=== PATIENT | female | born 1950 | race Caucasian/White ===

== ENCOUNTER 2016-06-26 12:28 | Inpatient (IN) | payer OTHER, MEDICARE ==
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
[~2016-06-26] VITALS: Ht 149.9 cm; Wt 56.3 kg
[2016-06-26] MEDS ORDERED: HYDR-3516 PO (14:50)
[2016-06-26] MEDS ORDERED: THERTAB27 PO (14:50)
[2016-06-26] MEDS ORDERED: CALC600T25 PO (14:50)
[2016-06-26] MEDS ORDERED: IBUP200T2 PO (14:50)
[2016-06-28] MEDS: LACTATED RINGER'S 1000 ML IV SCH (06:20)
[2016-06-28 06:24] VITALS: BP 130/65; PULSE 76; RESP 16; TEMP 98.1; O2SAT 100
[2016-06-28] MEDS ORDERED: INSULIN HUMAN REGULAR 1,000 UNITS/10 ML VIAL SQ PRN (06:30)
[2016-06-28] MEDS ORDERED: METOPROLOL TARTRATE 25 MG TAB PO PRN (06:30)
[2016-06-28] MEDS ORDERED: ceFAZolin 2 GM PREMIX 50 ML ONE (06:30)
[2016-06-28] MEDS: POVIDONE IODINE 7.5% SCRUB 118 ML BOTTLE TOP SCH (06:45)
[2016-06-28] MEDS ORDERED: TRANEXAMIC ACID 1 GM POST-OP IV SCH ×2 (06:45)
[2016-06-28] MEDS: CHLORHEXIDINE GLUCONATE 4% SOLN 120 ML BTL TOP SCH (06:45)
[2016-06-28] MEDS ORDERED: TRANEXAMIC ACID 1 GM PRIOR TO PROCEDURE IV SCH ×2 (06:45)
[2016-06-28] MEDS ORDERED: ceFAZolin 2 GM PREMIX 50 ML IV SCH (06:45)
[2016-06-28] MEDS ORDERED: MIDAZOLAM HCL 5 MG/5 ML VIAL ONE (06:58)
[2016-06-28] MEDS ORDERED: SODIUM CHLORID 0.9% 500 ML IV SCH (07:30)
[2016-06-28] MEDS ORDERED: ceFAZolin INJ 1,000 MG VIAL TOP ONE (08:22)
[2016-06-28] MEDS ORDERED: fentaNYL CITRATE 250 MCG/5 ML AMP ONE (10:10)
[2016-06-28] MEDS: DEXT 5%-NACL 0.45% 1000 ML INJ 1,000 ML IV SCH ×2 (10:17→17:54)
[2016-06-28] MEDS ORDERED: NALOXONE HCL 0.4 MG/ML AMP IV PRN (10:30)
[2016-06-28] MEDS ORDERED: ZOLPIDEM TARTRATE 5 MG TAB PO PRN (10:30)
[2016-06-28] MEDS ORDERED: TRANEXAMIC ACID INJ 1,000 MG in SODIUM CHLORIDE 0.9% INJ 100 ML IV SCH (10:30)
[2016-06-28] MEDS ORDERED: SODIUM CHLORIDE 0.9% FLUSH 5 ML FLUSH IVF PRN (10:30)
[2016-06-28] MEDS ORDERED: MISCELLANEOUS PHARMACY INFORMATION XX ONE (10:30)
[2016-06-28] MEDS ORDERED: DOCUSATE SODIUM 100 MG CAP PO PRN (10:30)
[2016-06-28] MEDS ORDERED: MAGNESIUM HYDROXIDE SUSP 30 ML CUP PO PRN (10:30)
[2016-06-28] MEDS ORDERED: MORPHINE SULFATE 30 MG/30 ML PCA IV SCH (10:30)
[2016-06-28] MEDS ORDERED: BISACODYL 10 MG SUPP PR PRN (10:30)
[2016-06-28] MEDS ORDERED: Post-op Orders (for Pharmacy) MISC XX ONE (10:30)
[2016-06-28] MEDS ORDERED: ONDANSETRON HCL 4 MG/2 ML VIAL IVP PRN (10:30)
[2016-06-28] MEDS ORDERED: ACETAMINOPHEN/HYDROcodone 325 MG/5 MG TAB PO PRN (10:30)
[2016-06-28] MEDS ORDERED: ACETAMINOPHEN 325 MG TAB PO PRN (10:30)
[2016-06-28] MEDS ORDERED: PROMETHAZINE INJ 25 MG/ML VIAL IM PRN (10:30)
[2016-06-28] MEDS ORDERED: diphenhydrAMINE HCL 25 MG CAP PO PRN (10:30)
[2016-06-28] MEDS ORDERED: DO NOT ADM ANY ANTICOAGULANT DRUGS XX PRN (10:45)
--- NOTE | 2016-06-28 11:37 | RADRPT ---
EXAM DATE/TIME: 06/28/2016 10:42 [facility] COMPARISON: No previous studies available for comparison. INDICATIONS : Evaluate knee post total replacement. MEDICAL HISTORY : None. SURGICAL HISTORY : None. ENCOUNTER: Initial ACUITY: 1 day PAIN SCORE: 0/10 LOCATION: Right Knee FINDINGS: AP and lateral views of the knee following arthroplasty reveals a prosthesis in anatomic alignment. F racture is not appreciated. Surgical drain is evident. CONCLUSION: Status post total knee arthroplasty. Bishnu Baugh MD FACR Board Certified Radiologist. This report was verified electronically.
[2016-06-28] MEDS ORDERED: LACTATED RINGER'S 1000 ML INJ 1,000 ML IV ONE (12:00)
[2016-06-28] MEDS ORDERED: PHENYLEPH/NS 1000 MCG/10 ML SYR IV ONE (12:00)
[2016-06-28] MEDS ORDERED: PROPOFOL 200 MG/20 ML AMP IV ONE (12:00)
[2016-06-28] MEDS ORDERED: ePHEDrine/NS 50 MG/5 ML SYR IV ONE (12:00)
[2016-06-28] MEDS ORDERED: BUPIVACAINE HCL PF 0.5% 30 ML VIAL NB ONE (12:19)
[2016-06-28] MEDS: PCA - TOTAL MG MORPHINE DELIVERED PER SHIFT SCH ×2 (14:00→22:00)
[2016-06-28 14:10] VITALS: BP 112/56; PULSE 78; RESP 18; TEMP 96.2; O2SAT 99
--- NOTE | 2016-06-28 16:28 | PD.CONS ---
[facility] Request[facility] By Dr. zuñiga Reason for Consult Postoperative medical management Primary Care Physician Non-Staff Diagnoses: (1) Osteoarthritis (2) Post-operative state History of Present Illness 66-year-old female with a medical history significant for osteoarthritis of the right knee with failed conservative management admitted to the hospital for total right knee arthroplasty. The patient is seen postoperatively. She reports that she has been having issues with the knee for the past 5 years and finally got to the point where she wanted to proceed with surgical intervention. Currently she reports that she is comfortable. She denies any other medical problems. She takes uiky-oni-ppizlov vitamins and occasional anti -inflammatory medication for the right knee pain. Review of Systems Musculoskeletal: COMPLAINS OF: Joint pain Other All other systems reviewed and are negative. Past Family Social History Allergies: Coded Allergies: No Known Allergies (Unverified , 06/28/16) Past Medical History Osteoarthritis Past Surgical History Total hysterectomy Reported Medications Reported Meds & Active Scripts Active Reported Calcium (Calcium Carbonate) 600 Mg Tab 600 Mg PO BID Ibuprofen 200 Mg Tab 200 Mg PO Q4H PRN Theragran-M (Multiple Vitamins W/ Minerals) 1 Tab 1 Tab PO DAILY Family History Mother with history of hypertension and stroke Social History The patient denies tobacco, alcohol, or illicit drugs. Physical Exam Vital Signs Vital Signs Date Time Temp Pulse Resp B/P Pulse Ox O2 Delivery O2 Flow Rate FiO2 06/28/16 14:10 96.2 78 18 112/56 99 06/28/16 13:30 83 12 118/60 97 Room Air 06/28/16 13:00 97.4 72 12 123/68 97 Room Air 06/28/16 12:30 73 15 118/57 97 Room Air 06/28/16 12:00 70 13 131/71 98 Room Air 06/28/16 11:45 72 12 126/71 99 Room Air 06/28/16 11:33 15 06/28/16 11:30 80 14 128/70 99 Room Air 06/28/16 11:15 85 13 124/70 99 Room Air 06/28/16 11:00 85 16 124/66 99 Room Air 06/28/16 10:45 87 14 112/49 99 Room Air 06/28/16 10:30 81 13 114/60 97 Room Air 06/28/16 10:15 83 14 105/66 99 Room Air 06/28/16 10:04 96.5 85 16 114/60 99 Room Air 06/28/16 07:20 81 14 135/76 99 06/28/16 06:50 Nasal Cannula 3 06/28/16 06:45 98.1 114 17 137/66 98 06/28/16 06:24 98.1 76 16 130/65 100 Physical Exam GENERAL: This is a well-nourished, well-developed patient, in no apparent distress. SKIN: No rashes, ecchymoses or lesions. Cool and dry. HEAD: Atraumatic. Normocephalic. EYES: Pupils equal round and reactive. Extraocular motions intact. No scleral icterus. No injection or drainage. ENT: Nose without drainage. Throat without erythema NECK: Trachea midline. CARDIOVASCULAR: Regular rate and rhythm without murmurs, gallops, or rubs. RESPIRATORY: Clear to auscultation. Breath sounds equal bilaterally. No wheezes , rales, or rhonchi. GASTROINTESTINAL: Abdomen soft, non-tender, nondistended. No hepato-splenomegaly , or palpable masses. No guarding. MUSCULOSKELETAL: Postop right knee. Wrapped with Sam/postsurgical dressing. There is a drain with blood in it. Neurovascularly intact distally NEUROLOGICAL: Awake and alert. Normal speech. Laboratory Laboratory Tests Test 06/28/16 06:25 Blood Type B POSITIVE Antibody Screen NEGATIVE Blood Bank Comment Imaging Last Impressions Knee X-Ray 06/28/16 1017 Signed Impressions: Service Date/Time: Tuesday, June 28, 2016 10:42 - CONCLUSION: Status post total knee arthroplasty. Bishnu Baugh MD Assessment and Plan Problem List: (1) Osteoarthritis ICD Code: M19.90 Status: Acute (2) Post-operative state ICD Code: Z98.890 Status: Acute Assessment and Plan 66-year-old female with: Osteoarthritis of the right knee status post total knee arthroplasty: - Postop day 0. Patient doing well. - Continue routine postop care per orthopedics. Monitor H&H in AM. 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 DVT PPx: Xarelto to be started tomorrow Discussed Condition With Patient. Matilda Monteiro MD Jun 28, 2016 16:28
[2016-06-28 18:47] VITALS: O2SAT 99
[2016-06-28 20:00] VITALS: BP 112/51; PULSE 91; RESP 16; TEMP 98.7; O2SAT 98
[2016-06-28] MEDS: SODIUM CHLORIDE 0.9% FLUSH 5 ML FLUSH IVF SCH (21:55)
[2016-06-29] VITALS (8 sets, daily range): BP systolic 105–121; BP diastolic 56–66; PULSE 73–91; RESP 16–18; TEMP 97–99.7; O2SAT 95–100
[2016-06-29] MEDS: DEXT 5%-NACL 0.45% 1000 ML INJ 1,000 ML IV SCH ×4 (02:17→23:13)
[2016-06-29 04:56] LABS: HEMATOCRIT 32.1 % (35.0-46.0); REVIEW FLAG FINAL
[2016-06-29] MEDS ORDERED: HYDR-3516 PO (06:16)
[2016-06-29] MEDS ORDERED: ASPI325T PO (06:16)
--- NOTE | 2016-06-29 06:19 | HHI.FF ---
Face to Face Verification Diagnosis: (1) DJD (degenerative joint disease) of knee Physical Therapy Gait training Knee: Total knee, Protocol: Right, Full weight bearing Right LE Weight Bearing: WB as tolerated Right LE Range of Motion: Active ROM Nursing Dressing Changes: Daily dressing change I have seen patient Prema Cooney on 06/29/16. My clinical findings support the need for the requested home health care services because: Limited ability to care for self High risk of falls I certify that my clinical findings support that this patient is homebound because: Post-op weakness Unsteady gait/balance Unsafe to leave home unassisted Cosmo Jacobo MD Jun 29, 2016 06:19
[2016-06-29] MEDS ORDERED: MISC-274 (06:22)
[2016-06-29] MEDS: POVIDONE IODINE 7.5% SCRUB 118 ML BOTTLE TOP SCH ×2 (06:45→23:14)
[2016-06-29] MEDS: CHLORHEXIDINE GLUCONATE 4% SOLN 120 ML BTL TOP SCH ×2 (06:45→23:14)
[2016-06-29] MEDS: LACTATED RINGER'S 1000 ML IV SCH (07:30)
--- NOTE | 2016-06-29 07:52 | HHI.PR ---
Subjective Remarks Follow-up for right knee osteoarthritis status post right total knee arthroplasty. Patient is doing well. No acute concerns. She feels sleepy when she uses pain medications and does not want to use pain meds much. Objective Vitals Vital Signs Date Time Temp Pulse Resp B/P Pulse Ox O2 Delivery O2 Flow Rate FiO2 06/29/16 06:25 99.3 87 16 121/59 97 06/29/16 00:25 99.7 76 16 113/56 98 06/29/16 00:24 99.7 76 16 113/56 98 06/28/16 22:00 16 06/28/16 20:00 98.7 91 16 112/51 98 06/28/16 18:47 99 21 06/28/16 14:10 96.2 78 18 112/56 99 06/28/16 14:00 16 06/28/16 13:30 83 12 118/60 97 Room Air 06/28/16 13:00 97.4 72 12 123/68 97 Room Air 06/28/16 12:30 73 15 118/57 97 Room Air 06/28/16 12:00 70 13 131/71 98 Room Air 06/28/16 11:45 72 12 126/71 99 Room Air 06/28/16 11:33 15 06/28/16 11:30 80 14 128/70 99 Room Air 06/28/16 11:15 85 13 124/70 99 Room Air 06/28/16 11:00 85 16 124/66 99 Room Air 06/28/16 10:45 87 14 112/49 99 Room Air 06/28/16 10:30 81 13 114/60 97 Room Air 06/28/16 10:15 83 14 105/66 99 Room Air 06/28/16 10:04 96.5 85 16 114/60 99 Room Air I/O 06/28/16 06/28/16 06/28/16 06/29/16 06/29/16 06/29/16 07:00 15:00 23:00 07:00 15:00 23:00 Intake Total 1300 ml 1613 ml 240 ml Output Total 140 ml 60 ml Balance 1160 ml 1553 ml 240 ml Intake Oral 480 ml 240 ml IV Total 1133 ml Other 1300 ml Output Drainage Total 90 ml 60 ml Estimated Blood Loss 50 ml # Voids 3 4 # Bowel Movements 0 0 Result Diagram: 06/29/16 0402 Imaging Last Impressions Knee X-Ray 06/28/16 1017 Signed Impressions: Service Date/Time: Tuesday, June 28, 2016 10:42 - CONCLUSION: Status post total knee arthroplasty. Bishnu Baugh MD Objective Remarks GENERAL: Alert, oriented 3, NAD. SKIN: Warm and dry. HEAD: Normocephalic. EYES: No scleral icterus. No injection or drainage. NECK: Supple, trachea midline. No JVD or lymphadenopathy. CARDIOVASCULAR: Regular rate and rhythm without murmurs, gallops, or rubs. RESPIRATORY: Breath sounds equal bilaterally. No accessory muscle use. GASTROINTESTINAL: Abdomen soft, non-tender, nondistended. MUSCULOSKELETAL: No cyanosis, or edema. s/p right TKA. BACK: Nontender without obvious deformity. No CVA tenderness. Procedures Right total knee arthroplasty 06/28/2016 A/P Problem List: (1) Osteoarthritis ICD Code: M19.90 Status: Acute Assessment and Plan Ms. Cooney, 66 underwent right total knee arthroplasty on 06/28/2016. - Osteoarthritis of the right knee - Status post right total knee arthroplasty. 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 - Encourage patient to use incentive spirometer. Full code. Xarelto for DVT prophylaxis. Tolu Morse DO Jun 29, 2016 07:52
[2016-06-29] MEDS: SODIUM CHLORIDE 0.9% FLUSH 5 ML FLUSH IVF SCH ×2 (09:00→20:17)
[2016-06-29] MEDS: RIVAROXABAN 10 MG TAB PO SCH (09:08)
[2016-06-29] MEDS: ACETAMINOPHEN/HYDROcodone 325 MG/5 MG TAB PO PRN ×2 (10:21→18:06)
[2016-06-29] MEDS: PCA - TOTAL MG MORPHINE DELIVERED PER SHIFT SCH ×3 (14:00→23:14)
[2016-06-30] VITALS: BP 125/62; PULSE 86; RESP 19; TEMP 98.3; O2SAT 96
[2016-06-30] MEDS: ACETAMINOPHEN/HYDROcodone 325 MG/5 MG TAB PO PRN ×3 (06:31→20:12)
[2016-06-30] MEDS: LACTATED RINGER'S 1000 ML IV SCH (07:30)
[2016-06-30 08:00] VITALS: BP 113/56; PULSE 93; RESP 19; TEMP 98.7; O2SAT 97
[2016-06-30] MEDS: SODIUM CHLORIDE 0.9% FLUSH 5 ML FLUSH IVF SCH ×2 (08:17→20:13)
[2016-06-30] MEDS: RIVAROXABAN 10 MG TAB PO SCH (08:24)
[2016-06-30] MEDS: DEXT 5%-NACL 0.45% 1000 ML INJ 1,000 ML IV SCH ×3 (10:17→20:13)
--- NOTE | 2016-06-30 11:05 | HHI.PR ---
Subjective Remarks Follow-up for right knee osteoarthritis status post right total knee arthroplasty. Ms. Cooney is doing well. No acute concerns. Denies any fever , chills. Objective Vitals Vital Signs Date Time Temp Pulse Resp B/P Pulse Ox O2 Delivery O2 Flow Rate FiO2 06/30/16 08:00 98.7 93 19 113/56 97 06/30/16 06:46 Room Air 06/30/16 00:00 98.3 86 19 125/62 96 06/29/16 20:00 98.9 91 18 117/57 95 06/29/16 16:00 97.9 80 18 112/66 100 06/29/16 12:00 97.0 73 18 105/57 99 I/O 06/29/16 06/29/16 06/29/16 06/30/16 06/30/16 06/30/16 07:00 15:00 23:00 07:00 15:00 23:00 Intake Total 240 ml 750 ml 240 ml 380 ml Output Total 200 ml 280 ml 30 ml Balance 240 ml 550 ml -40 ml 350 ml Intake Oral 240 ml 720 ml 240 ml 380 ml IV Total 30 ml Output Urine Total 240 ml Stool Total 0 ml Drainage Total 200 ml 40 ml 30 ml # Voids 4 3 3 # Bowel Movements 0 0 0 Result Diagram: 06/29/16 0402 Imaging Last Impressions Knee X-Ray 06/28/16 1017 Signed Impressions: Service Date/Time: Tuesday, June 28, 2016 10:42 - CONCLUSION: Status post total knee arthroplasty. Bishnu Baugh MD Objective Remarks GENERAL: Alert, oriented 3, NAD. SKIN: Warm and dry. HEAD: Normocephalic. EYES: No scleral icterus. No injection or drainage. NECK: Supple, trachea midline. No JVD or lymphadenopathy. CARDIOVASCULAR: Regular rate and rhythm without murmurs, gallops, or rubs. RESPIRATORY: Breath sounds equal bilaterally. No accessory muscle use. GASTROINTESTINAL: Abdomen soft, non-tender, nondistended. MUSCULOSKELETAL: No cyanosis, or edema. s/p right TKA. BACK: Nontender without obvious deformity. No CVA tenderness. Procedures Right total knee arthroplasty 06/28/2016 A/P Problem List: (1) Osteoarthritis ICD Code: M19.90 Status: Acute Assessment and Plan Ms. Cooney, 66 underwent right total knee arthroplasty on 06/28/2016. - Osteoarthritis of the right knee - Status post right total knee arthroplasty. 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 - Patient is doing better with incentive spirometry. RT present during use of IS. Full code. Xarelto for DVT prophylaxis. Probable discharge on 07/01/2016. Tolu Morse DO Jun 30, 2016 11:05 am
[2016-06-30 12:00] VITALS: BP 113/67; PULSE 92; RESP 18; TEMP 98.6; O2SAT 99
[2016-06-30] MEDS: PCA - TOTAL MG MORPHINE DELIVERED PER SHIFT SCH ×2 (13:27→20:13)
[2016-06-30 16:00] VITALS: BP 117/69; PULSE 81; RESP 18; TEMP 98.8; O2SAT 97
[2016-06-30 19:00] VITALS: BP 112/54; PULSE 97; RESP 16; TEMP 99.4; O2SAT 98
[2016-06-30 23:40] VITALS: BP 129/62; PULSE 90; RESP 17; TEMP 98.8; O2SAT 96
[2016-07-01] MEDS: ACETAMINOPHEN/HYDROcodone 325 MG/5 MG TAB PO PRN ×2 (05:45→10:10)
[2016-07-01] MEDS: LACTATED RINGER'S 1000 ML IV SCH (07:30)
--- NOTE | 2016-07-01 07:42 | HHI.PR ---
Subjective Remarks Follow-up for right knee osteoarthritis status post right total knee arthroplasty. Ms. Cooney is doing well. No acute concerns. Denies any CP, SOB, fever, chills. Likely discharge home today. Objective Vitals Vital Signs Date Time Temp Pulse Resp B/P Pulse Ox O2 Delivery O2 Flow Rate FiO2 06/30/16 23:40 98.8 90 17 129/62 96 06/30/16 19:00 99.4 97 16 112/54 98 06/30/16 16:00 98.8 81 18 117/69 97 06/30/16 12:00 98.6 92 18 113/67 99 06/30/16 08:00 98.7 93 19 113/56 97 I/O 06/30/16 06/30/16 06/30/16 07/01/16 07/01/16 07/01/16 07:00 15:00 23:00 07:00 15:00 23:00 Intake Total 380 ml 1080 ml 480 ml Output Total 30 ml Balance 350 ml 1080 ml 480 ml Intake Oral 380 ml 1080 ml 480 ml Drainage Total 30 ml # Voids 3 6 3 # Bowel Movements 0 1 0 Result Diagram: 06/29/16 0402 Imaging Last Impressions Knee X-Ray 06/28/16 1017 Signed Impressions: Service Date/Time: Tuesday, June 28, 2016 10:42 - CONCLUSION: Status post total knee arthroplasty. Bishnu Baugh MD Objective Remarks GENERAL: Alert, oriented 3, NAD. SKIN: Warm and dry. HEAD: Normocephalic. EYES: No scleral icterus. No injection or drainage. NECK: Supple, trachea midline. No JVD or lymphadenopathy. CARDIOVASCULAR: Regular rate and rhythm without murmurs, gallops, or rubs. RESPIRATORY: Breath sounds equal bilaterally. No accessory muscle use. GASTROINTESTINAL: Abdomen soft, non-tender, nondistended. MUSCULOSKELETAL: No cyanosis, or edema. s/p right TKA. BACK: Nontender without obvious deformity. No CVA tenderness. Procedures Right total knee arthroplasty 06/28/2016 A/P Problem List: (1) Osteoarthritis ICD Code: M19.90 Status: Acute Assessment and Plan Ms. Cooney, 66 underwent right total knee arthroplasty on 06/28/2016. - Osteoarthritis of the right knee - Status post right total knee arthroplasty. 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 - Patient is doing better with incentive spirometry. RT present during use of IS. Full code. Xarelto for DVT prophylaxis. Probable discharge on 07/01/2016. No acute medical issues. Patient is being discharged today. Tolu Morse DO Jul 01, 2016 7:41 am
[2016-07-01 08:00] VITALS: BP 121/62; PULSE 100; RESP 18; TEMP 97.6; O2SAT 96
[2016-07-01] MEDS: SODIUM CHLORIDE 0.9% FLUSH 5 ML FLUSH IVF SCH (09:00)
[2016-07-01] MEDS: RIVAROXABAN 10 MG TAB PO SCH (10:09)
--- NOTE | 2016-07-03 16:17 | MP ---
cc: ANISAANTON Corrected Copy: 07/04/16 DATE OF SURGERY 06/28/2016 PREOPERATIVE DIAGNOSIS Osteoarthritis of the right knee, varus deformity right knee, patellofemoral disorder right knee, pain right knee. POSTOPERATIVE DIAGNOSIS Osteoarthritis of the right knee, varus deformity right knee, patellofemoral disorder right knee, pain right knee. PROCEDURE Right total knee arthroplasty. SURGEON Anton Jacobo MD ANESTHESIA Spinal. INDICATIONS A 66-year-old white female with the right knee pain of at least 5 years duration. She associates the onset of her symptoms with exercise activities that included playing racquetball on a routine basis for over 20 years. During this interval of time she began to note a progressive pain about her right knee for which she initially elected to continue with conservative management and within the past 5 years she relocated to [place] at which time she started to modify her exercise routine because of ongoing pain about her right knee. She subsequently had to discontinue all racquetball participation and substituted walking as a form of her exercise routine. Her symptoms became more pronounced for which she was taking ibuprofen on a routine basis with limited benefit described. She was aware of swelling about her right knee with a clicking sensation that began to limit all weightbearing activities. She presented to the undersigned physician in May of this past year and at that time described considerable incapacitation with regard to all activities of daily living. Her x-ray studies revealed obvious degenerative change with [id number]-[id number] apposition about the medial compartment associated with a varus deformity of almost 15 degrees magnitude secondary involvement of the patellofemoral articulation. Findings and treatment options were reviewed with the patient at that time. The pros and cons of continuing with conservative management versus operative intervention that would involve total knee arthroplasty were outlined in detail. Emphasis was made regarding the fact that the decision to proceed with surgery would be left entirely to the patient's discretion. She readily admitted that she had reached that point in time where her degree of pain was of such a nature that she was ready to proceed with operative intervention as discussed. In compliance with her wishes she was currently scheduled for admission in order that the above be accomplished. FORMAT Following the induction of satisfactory spinal anesthesia as completed per the department of anesthesia a tourniquet was established around the proximal portion of the right lower extremity. The extremity proper was isolated and a U drape thereafter being prepped with Betadine solution and draped into a sterile field in the routine manner. Prior to initiation of the actual procedure the standard time-out protocol was completed. All parameters were appropriately addressed and confirmed by operating room personnel. The extremity was elevated for approximately 1 minute and the tourniquet thus inflated to 250 mmHg pressure. A sharp skin incision was initiated midline over the anterior aspect of the knee and developed the underlying subcutaneous tissue with hemostasis maintained by electrocautery. By deepening dissection the anterior capsule was exposed. A medial capsulotomy completed and the patella subluxed in the lateral orientation. Examination of the joint space revealed severe degenerative changes throughout the medial compartment extending into the patellofemoral joint. There was complete erosion of articular cartilage with subchondral bone exposed. The articular surface of the patella was resected with power saw. The three holed guide was utilized for establishing post holes. Anterior cruciate ligament as well as medial and lateral meniscus structures were sharply excised. A centering hole was placed in the distal aspect of the femur allowing positioning of the intramedullary guide. The distal femoral cutting jig was attached and the distal femur resected. AP measurement noted 57.5 mm sizing to be appropriate. The matching cutting block was positioned. Anterior, posterior and chamfer cuts were completed. The tibial plateau was thereafter subluxed in an anterior orientation allowing positioning of the extramedullary guide. The tibial plateau was resected and measured with 67 mm sizing determined to be appropriate. A trial reduction followed utilizing a 57.5 mm anatomic femoral component, a 67 mm tibial base with both 10, 12 and 14 mm bearing inserts trialed to 14 mm thickness was determined to be the more favorable fit. The knee was readily brought to full extension. There was no laxity to varus valgus stress at both 0 and 90 degrees flexed posture. Orientation was confirmed as being appropriate with measurement of the pelvic guide through the mechanical axis of the knee. A trial reduction followed utilizing a 31 mm standard patellar button. Once again good tracking was noted with no tendency toward subluxation. All trial components being removed, the remaining portion of the proximal tibia was prepared for insertion of the permanent component. The joint space was thoroughly lavaged with pulsating antibiotic solution, hemostasis maintained by electrocautery. An autogenous bone plug was inserted into the distal femoral guide hole and thereafter a preparation of [place] bone cement was utilized in inserting the knee components in a sequential fashion which included a 67 mm fixed cruciate tibial plate to which a 14 mm Vanguard tibial bearing insert was secured with locking purvis. The 57.5 mm Vanguard femoral component was firmly seated onto the distal femur, excess cement being removed. The knee was brought to full extension and thereafter a 31 mm standard three-post patellar button was attached and maintained in place with patellar clamp while cement hardening was completed. Final range of motion assessment noted good tracking stability throughout the knee. Irrigation was repeated with hemostasis maintained. Autovac drain tubes were inserted through superior stab wounds. The capsule was repaired with 0 Vicryl suture. The remaining portion of the wound was closed in layers in the routine manner, skin margins being re-approximated with a running subcuticular 3-0 Vicryl suture over which Steri-Strips were applied. Xeroform gauze and a bulky dry sterile dressing were placed. The tourniquet was deflated after 43 minutes of tourniquet time, the extremity being supported in a canvas knee splint. Anesthesia was discontinued and the patient thus transferred to a hospital bed and returned to the recovery room in satisfactory condition having tolerated her operative procedure well. Estimated blood loss was approximately 75-100 cc as determined per Anesthesia. MD FAUZIA Toth/DIANE /10:07 AM /9:01 AM
--- NOTE | 2016-07-11 12:30 | MD ---
cc: ANTON LANGE THERESA ADMISSION DATE: 06/28/2016 DISCHARGE DATE: 07/01/2016 ADMITTING DIAGNOSIS Osteoarthritis of the right knee, varus deformity right knee patellofemoral disorder right knee, pain right knee. DISCHARGE DIAGNOSIS Osteoarthritis of the right knee, varus deformity right knee patellofemoral disorder right knee, pain right knee. HISTORY The patient is a 66-year-old white female who has experienced right knee pain of at least 5 years duration. There was no direct injury to her knee but she did relate the onset of her symptoms to exercise activities having been quite active with regards to playing [employer] on a regular basis for over a 20-year interval of time. She gradually began to note pain about her right knee but elected to continue with conservative modalities. Within the past five years she relocated to [place] and at that time she had to begin modifying her routine because of ongoing pain. She subsequently discontinued her racquetbNets[employer] activities because of her discomfort and substituted walking as a form of exercise. Her symptoms became more pronounced for which she was taking ibuprofen on a routine basis with limited benefit. She was aware of swelling about her knee with a clicking sensation that began to limit all weightbearing activities. She presented to the undersigned physician in May of this past year and at that time described considerable incapacitation with regards to all activities of daily living. Her x-ray studies revealed obvious degenerative changes with [id number] apposition about the medial compartment associated with a varus deformity of almost 15 degrees magnitude and secondary involvement of the patellofemoral articulation. Findings and treatment options were reviewed with the patient at that time. The pros and cons of continuing with conservative management versus operative intervention that would involve a total knee arthroplasty were outlined in detail. Emphasis was made regarding the fact that the decision to proceed with surgery would be left entirely to the patient's discretion. She readily admitted that her symptoms had progressed to a point in time where she was ready to proceed in this direction and in compliance with her wishes she was scheduled for admission at this time in order that the above be accomplished. Her physical examination at the time of her admission did reveal a fullness about the right knee that was consistent with redundancy of soft tissue. There was no obvious intraarticular effusion. Varus deformity and limited mobility in the 100 degree range of flexion with pain at the extreme of motion. No crepitation or instability. Straight-leg raising unremarkable at 80 degrees. Satisfactory mobility of the right hip with no associated pain. Independent gait. HOSPITAL COURSE Prior to admission to the hospital the patient had undergone medical evaluation and clearance for surgery as completed by her primary care physician, Dr. More. She was taken to the operating room June 28, 2016 and on that date underwent a right total knee arthroplasty completed in an uncomplicated manner. The patient was noted to have tolerated her operative procedure well and her postoperative course stable thereafter. She was progressively mobilized under the guidance of physical therapy being permitted weightbearing to tolerance about the right lower extremity. Follow-up examination of her surgical wound noted it to be intact healing favorably with no evidence of infection. Medical follow-up per the hospitalist service. DVT prophylaxis initiated. Statistical Financial Analyst consulted to assist with discharge planning. Hemoglobin/hematocrit assessment postoperatively was 10.9 and 32.1 respectively. The patient had indicated her desire to be discharged home and continue her rehabilitation on an outpatient basis. Plans were finalized in this regard. She was subsequently scheduled for discharge on the third postoperative day at which time she was noted to be making favorable progress with regards to her rehab program. She was scheduled to be seen in office follow-up in approximately 4 weeks. Her condition at the time of discharge was stable. Prognosis favorable. DISCHARGE MEDICATIONS 1. Hydrocodone 5/325, #60. 2. Aspirin 325 mg, one tablet twice daily for three weeks, #40. MD FAUZIA Toth/BT /9:02 AM /12:17 PM
== END 2016-07-01 11:13 | disposition home health service (06) | DRG 470 ==
LOC: HSDI 06-28 05:41 → N06B 06-28 13:49
PROVIDERS: ADMIT Orthopaedic Surgery; ATTEND Orthopaedic Surgery
PROC: 3E0T3CZ (ICD-10-PCS; 2016-06-28)
PROC: 0SRC0J9 Replacement of Right Knee Joint with Synthetic Substitute, Cemented, Open Approach (ICD-10-PCS; principal; 2016-06-28 07:27)
DX: M17.11 Unilateral primary osteoarthritis, right knee (principal); M21.161 Varus deformity, not elsewhere classified, right knee; R50.9 Fever, unspecified
CPT/HCPCS: 73560; 85014; 85018; 86850; 86900; 86901; 88305; 94150; C1776; J0690; J2250; J2270; J2370; J3010; J7120; L1830

== ENCOUNTER → 2016-08-07 | Day surgery (SDC) | payer OTHER ==
[~2016-08-07] MED LIST: ASPI325T PO; BUPIVACAINE/EPINEPHRINE 0.5% PF 30 ML VIAL ONE; CALC600T25 PO; HYDR-3516 PO; ISOSULFAN BLUE 50 MG/5 ML VIAL SQ ONE; LACTATED RINGER'S 1000 ML INJ 1,000 ML ONE; MIDAZOLAM HCL 2 MG/2 ML VIAL ONE; MISC-274; NEOMYCIN/POLYMYXIN/BACITRACIN OINT 15 GM TUBE ONE; ONDANSETRON HCL 4 MG/2 ML VIAL IV PUSH ONE; PROPOFOL 200 MG/20 ML AMP IV ONE; THERTAB27 PO; ceFAZolin 2 GM PREMIX 50 ML ONE
--- NOTE | 2016-08-07 12:49 | TN ---
cc: BROOKS PINA M.D. DATE OF SURGERY: 08/07/2016 PREOPERATIVE DIAGNOSIS DCIS, right breast. POSTOPERATIVE DIAGNOSIS DCIS right, breast. PROCEDURE PERFORMED 1. Needle-localized right breast biopsy. 2. Injection and excision sentinel node right axilla x2. 3. Placement of CLINTON device for PANKAJ. SURGEON Brooks Pina CASING FINISHER AND STUFFER NAKITA Hess ANESTHESIA General LMA. COMPLICATIONS None. INDICATION FOR PROCEDURE Ms. Cooney is a very pleasant 66-year-old female who was noted to have microcalcifications in the upper outer quadrant of the right breast. She underwent stereotactic biopsy and this was found to be DCIS. She was referred for evaluation. The patient was seen in the office and offered lumpectomy versus mastectomy. She was also offered partial breast versus whole breast radiation. She saw Dr. Gil Simons and they elected to do a partial breast irradiation with a needle-localized lumpectomy. We also discussed sentinel node excision due to the fact that she had comedo necrosis on her DCIS. The patient was agreeable to all procedures. The risks and benefits were reviewed with her in detail and she agreed and signed consents. INTRAOPERATIVE FINDINGS The patient had a blue sentinel node that was easily identified in the right axilla and had a 10 second count of 4087. She then had an adjacent node next to it which was not blue but did have a 10 second count of 856. These were labeled sentinel node #1 and #2 respectively. DETAILS OF PROCEDURE The patient was identified, brought to the operating room and placed supine on the operating table. After adequate general anesthesia was achieved with LMA, the right breast and axilla were prepped and draped in standard surgical fashion. Prior to prepping and draping we did inject 5 cc of isosulfan blue in a periareolar position as well as along the needle localization wire. Attention was first directed to the right axilla where the sentinel node had been marked by radiology. Using the probe we confirmed the location. 0.25% Marcaine was injected and a transverse incision was made. Dissection was carried down into the subcutaneous tissue using electrocautery Bovie. Immediately upon entering the axilla we encountered an enlarged blue node. This was grasped with an Allis clamp and dissected from surrounding tissue using electrocautery Bovie. This was excised and checked and found to have a 10 second count of 4087. It also had blue dye and was labeled sentinel node #1. After we did this there was a node just adjacent to the first node. It was pink and soft and did not appear enlarged or have any blue dye. It did have significant activity with the probe. We therefore excised it with an Allis clamp and electrocautery Bovie. It was checked and found to have a 10 second count of 856. It was not blue. It was labeled sentinel node #2. Once we excised these two nodes there were no other palpable nodes. There was also no blue dye noted within the axilla and using the probe there was no significant activity. At this point the axilla was irrigated, injected with additional local anesthetic and closed in two layers using 3-0 and 4-0 Vicryl. Sterile dressings were applied. Attention was now directed to the right breast. The patient had a wire localization at approximately the 9 o'clock position in the right breast going to the upper outer quadrant. 0.25% Marcaine was injected in the skin and subcutaneous tissue in the periareolar position. A periareolar incision was made from about 8 o'clock to 12 o'clock. The subcutaneous tissue was dissected with the electrocautery Bovie. Next, using generous margins in all directions the wire was dissected down to its base. The needle localization wire was transected at the skin and brought into the surgical wound. Dissection proceeded all the way down to the pectoralis major muscle. The specimen was excised. A short stitch was placed superior, a long stitch was placed lateral. By direct palpation the only margin that appeared to be close was the posterolateral margin. Therefore, the breast tissue was grasped with an Allis clamp along the medial border, dissected up off the pectoralis major muscle to the level of the lateral border which was also excised. This was sent as a posterior and lateral margin. By direct palpation there was also some firm tissue noted medially. I excised this with an Allis clamp and this was sent with the lateral posterior margin. Once we did this, there was no breast tissue in the upper outer quadrant of the breast where the wire localization had taken place. The breast was copiously irrigated with normal saline solution. All bleeding points were controlled with electrocautery Bovie. Attention was now directed to placement of the CLINTON device. The orientation of the lumpectomy cavity appeared to be in a diagonal superior to inferior direction. I therefore elected to use a lateral inferior approach for the PANKAJ CLINTON device. 0.25% Marcaine was injected and a transverse incision was made just above the inframammary fold. The trocar was used to widen the tunnel to the lumpectomy site. The CLINTON device was then placed and 30 cc of saline was used to insufflate it. This completely filled the cavity. The balloon was then desufflated. The lumpectomy cavity was filled with 0.25% Marcaine and then closed in two layers using 3-0 and 4-0 Vicryl. The balloon was then reinflated with 30 cc of saline. At this point sterile dressings were applied. Antibiotic ointment was applied around the CLINTON device. Dressings were applied and the patient was awakened and brought to Recovery in stable condition. Please note the presence of the SUPERVISORY INVESTIGATIVE SPECIALIST first assist was medically necessary due to her specialized surgical skills and knowledge of my surgical technique. MD RAHAT Montes De Oca/THALIA /12:20 PM /12:37 PM SORAIDA
== END | disposition home or self-care (01) ==
LOC: ESDC 06:44
PROVIDERS: ATTEND Surgery Trauma Surgery
DX: D05.11 Intraductal carcinoma in situ of right breast (principal)
CPT/HCPCS: 00400; 01610; 19125; 19499; 38525; 38792; 88307; J0690; J2250; J2405; J3010; J7120; Q9968; 88361

== ENCOUNTER → 2016-09-04 | Day surgery (SDC) | payer OTHER ==
[~2016-09-04] MED LIST changes: +BUPIVACAINE/EPINEPHRINE 0.25% 50 ML VIAL ONE; -BUPIVACAINE/EPINEPHRINE 0.5% PF 30 ML VIAL ONE; -ISOSULFAN BLUE 50 MG/5 ML VIAL SQ ONE; +KETOROLAC TROMETHAMINE 30 MG/ML (IVP) VIAL IV PUSH ONE; -NEOMYCIN/POLYMYXIN/BACITRACIN OINT 15 GM TUBE ONE
--- NOTE | 2016-09-04 11:07 | TN ---
cc: BROOKS PINA M.D. DATE OF SURGERY: 09/04/2016 PREOPERATIVE DIAGNOSIS DCIS upper outer right breast with multiple positive margins POSTOPERATIVE DIAGNOSIS DCIS upper outer right breast with multiple positive margins PROCEDURE PERFORMED Right simple mastectomy. SURGEON Brooks Pina CHILD CAREGIVER NAKITA Hess SECOND ENTRY LEVEL FINANCE Sarah De La Cruz ANESTHESIA General LMA. COMPLICATIONS None. INDICATION FOR PROCEDURE Ms. Cooney is a very pleasant 66-year-old female who was noted to have microcalcifications in the upper outer quadrant of her right breast. She underwent needle biopsy and this was found to be DCIS. She had an MRI which showed fairly extensive enhancement in the upper outer quadrant of the right breast. She underwent a generous lumpectomy and was found to have multiple positive margins. During the procedure she had additional margins checked at that time and they were also positive. Based on this I advised the patient she would likely need a mastectomy in order to achieve negative margins. The risks and benefits were discussed with her and she was agreeable. The patient declined reconstruction. DETAILS OF PROCEDURE The patient was identified, brought to the operating room and placed supine on the operating table. After adequate general anesthesia was achieved with LMA, the anterior chest and axilla was prepped and draped in standard surgical fashion. 0.25% Marcaine was injected around the right breast. An elliptical incision was used to include the nipple-areolar complex. Subcutaneous skin flaps were then raised cephalad to the clavicle, medially to the sternum, inferiorly to the inframammary ridge and laterally to the anterior axillary line. The breast was then dissected up off the pectoralis major muscle using electrocautery Bovie. Once the axillary tail was achieved the breast was excised. The previous lumpectomy cavity was noted along the posterior border along the pectoralis and the underlying muscle was also excised with the specimen. Specimen was labeled with a short stitch superior, long stitch lateral. The wound was then copiously irrigated with normal saline solution. A 7-[place] Marquise-Negron drain was inserted and secured with a 3-0 nylon suture. Attention was now directed to closure. Closure was accomplished using a 2-0 Vicryl, 3-0 Vicryl and 4-0 Vicryl for a layered closure. Sterile dressings were applied and the patient was awakened and brought to Recovery in stable condition. 30 cc of 0.25% Marcaine was injected into the drain prior to leaving the operative room. Please note the DIRECTOR GLOBAL SALES assistant clinical director was medically necessary due to her specialized surgical skills and knowledge of my surgical technique. Brooks MD JOSE Pina /10:48 AM /10:59 AM SORAIDA
== END | disposition home or self-care (01) ==
LOC: ESDC 07:33
PROVIDERS: ATTEND Surgery Trauma Surgery
DX: D05.11 Intraductal carcinoma in situ of right breast (principal)
CPT/HCPCS: 00400; 19303; 88309; J0690; J1885; J2250; J2405; J3010; J7120; 88307